=== PATIENT | female | born 1945 | race Two or more races ===

== ENCOUNTER → 2018-12-19 | Outpatient (CLI) | payer OTHER ==
[~2018-12-19] MED LIST: CALTRATE+D3 PL1 EACH PO; METFORMIN HCL500 MG PO; NABUMETONE500 MG PO; OMEPRAZOLE40 MG PO; PEPCID40 MG PO; PERCOCET 5/3251 TAB PO
== END | disposition home or self-care (01) ==
LOC: SONOGRAMA 10:41
DX: E04.2 Nontoxic multinodular goiter (principal)

== ENCOUNTER → 2021-02-11 | Outpatient (CLI) | payer OTHER | END | disposition home or self-care (01) | LOC: SONOGRAMA 11:01 | PROVIDERS: ATTEND Internal Medicine Endocrinology, Diabetes & Metabolism | DX: E04.8 Other specified nontoxic goiter (principal) ==

== ENCOUNTER 2024-09-11 08:27 | Outpatient (CLI) | payer OTHER | END 2024-09-11 08:28 | disposition home or self-care (01) | LOC: NUCLEAR 08:27 | PROVIDERS: ATTEND Neuromusculoskeletal Medicine & OMM | DX: G30.9 Alzheimer's disease, unspecified (principal); G31.09 Other frontotemporal neurocognitive disorder | CPT/HCPCS: 78814; A9552 ==